=== PATIENT | female | born 1975 | race American Indian/Alaskan Native ===

== ENCOUNTER 2016-11-13 09:07 | Outpatient (CLI) | payer MEDICAID ==
[~2016-11-13] VITALS: Ht 165.1 cm; Wt 118.4 kg
[2016-11-13] MEDS ORDERED: TRIAMCINOLONE ACET (KENALOG-40) 40 MG/ML 1 ML VIAL ONE (09:13)
[2016-11-13] MEDS ORDERED: BUPIVACAINE 0.25% 30 ML (SENSORCAINE) VIAL ONE (09:13)
[2016-11-13 09:54] VITALS: BP 150/82
[2016-11-13 10:35] VITALS: BP 155/84
--- NOTE | 2016-11-13 13:26 | Pain Medicine-Procedure ---
Procedure Pre-Op/Post-Op Diagnosis Diagnosis: disc disorder with radiculopathy, lumbar Indications for Operation Low back and hip pain Attending Surgeon Ole Procedure Date of Service: Nov 13, 2016 Procedure: Lumbar Epidural Steroid Injection at the L4-L5 Level under Fluoroscopic Guidance and left sacroiliac joint injection Procedure: Patient was identified in the holding area. After risks, benefits, and alternatives were discussed with the patient, informed consent was obtained. Patient was brought to the fluoroscopy suite and placed prone on the procedure room table. A time out was performed. Vital signs were monitored throughout the procedure. The patients low back was prepped and draped in the usual sterile fashion. The patients skin was anesthetized using 2% Lidocaine. A Tuohy needle was inserted and advanced to the L4-L5 epidural space under fluoroscopic guidance using the loss of resistance technique and intermittent projection of fluoroscopy. There was no paresthesia with needle placement. The needle position was confirmed in both the AP and lateral view. After negative aspiration 2ml of non-ionic contrast was injected under live fluoroscopy which showed good spread of the contrast in the epidural space at the appropriate level, there was no intravascular or subarachnoid spread. Again, after negative aspiration for heme or CSF, 2 ml of 0.25% Bupivicaine, 2ml of preservative free normal saline, and 80mg of Kenalog was injected. The needle was removed and a sterile bandage was placed. Attention was then directed to the left sacroiliac joint which was identified under fluoroscopic guidance. The skin overlying the posterior inferior one third of the sacroiliac joint was anesthetized with 1 percent lidocaine and a 22 -gauge 3-1/2 inch needle was inserted and advanced into the joint. Following negative aspiration a total of 40 mg of Kenalog and 2 mL of 0.25 percent bupivacaine was injected. Needle was flushed with lidocaine and removed. Sterile bandage was applied. Patient tolerated the procedures well with no apparent complications. Complications None HOLA ARCHER MD Nov 13, 2016 1:26 pm
== END 2016-11-13 10:37 ==
LOC: CARD 09:07
PROVIDERS: ATTEND Pain Medicine Pain Medicine
DX: M51.16 Intervertebral disc disorders with radiculopathy, lumbar region (principal); M53.3 Sacrococcygeal disorders, not elsewhere classified; E11.9 Type 2 diabetes mellitus without complications; Z79.4 Long term (current) use of insulin
CPT/HCPCS: 27096; 62323; 82962

== ENCOUNTER 2017-03-26 09:02 | Outpatient (CLI) | payer MEDICAID, OTHER ==
[~2017-03-26] VITALS: Ht 165.1 cm; Wt 118.4 kg
[2017-03-26] MEDS ORDERED: BUPIVACAINE 0.25% 30 ML (SENSORCAINE) VIAL ONE (09:08)
[2017-03-26] MEDS ORDERED: TRIAMCINOLONE ACET (KENALOG-40) 40 MG/ML 1 ML VIAL ONE (09:08)
[2017-03-26 09:22] VITALS: BP 150/90
[2017-03-26 09:56] VITALS: BP 154/55
--- NOTE | 2017-03-26 12:37 | Pain Medicine-Procedure ---
Procedure Pre-Op/Post-Op Diagnosis Diagnosis: disc disorder with radiculopathy, lumbar Indications for Operation Low back and hip pain Attending Surgeon Ole Procedure Date of Service: March 26, 2017 Procedure: Lumbar Epidural Steroid Injection at the L5/S1 Level under Fluoroscopic Guidance and bilateral sacroiliac joint injections Procedure: Patient was identified in the holding area. After risks, benefits, and alternatives were discussed with the patient, informed consent was obtained. Patient was brought to the fluoroscopy suite and placed prone on the procedure room table. A time out was performed. Vital signs were monitored throughout the procedure. The patients low back was prepped and draped in the usual sterile fashion. The patients skin was anesthetized using 2% Lidocaine. A Tuohy needle was inserted and advanced to the L5-S1 epidural space under fluoroscopic guidance using the loss of resistance technique and intermittent projection of fluoroscopy. There was no paresthesia with needle placement. The needle position was confirmed in both the AP and lateral view. After negative aspiration 2ml of non-ionic contrast was injected under live fluoroscopy which showed good spread of the contrast in the epidural space at the appropriate level, there was no intravascular or subarachnoid spread. Again, after negative aspiration for heme or CSF, 2 ml of 0.25% Bupivicaine, 2ml of preservative free normal saline, and 80mg of Kenalog was injected. The needle was removed and a sterile bandage was placed. Attention was then directed to the right sacroiliac joint which was identified under fluoroscopic guidance. The skin overlying the posterior inferior one third of the sacroiliac joint was anesthetized with 1 percent lidocaine and a 22 -gauge 3-1/2 inch needle was inserted and advanced into the joint. Following negative aspiration a total of 20 mg of Kenalog and 2 mL of 0.25 percent bupivacaine was injected. Needle was flushed with lidocaine and removed. Attention was then directed to the left sacroiliac joint were the same procedure was performed and the same solution was injected. Sterile bandages were applied. Patient tolerated the procedures well with no apparent complications. Complications None HOLA ARCHER MD March 26, 2017 12:37 pm
== END 2017-03-26 09:57 | disposition home or self-care (01) ==
LOC: CARD 09:02
PROVIDERS: ATTEND Pain Medicine Pain Medicine
DX: M51.16 Intervertebral disc disorders with radiculopathy, lumbar region (principal); M53.3 Sacrococcygeal disorders, not elsewhere classified; Z79.84 Long term (current) use of oral hypoglycemic drugs; Z79.899 Other long term (current) drug therapy
CPT/HCPCS: 27096; 62323; 82962